=== PATIENT | male | born 1945 | race Caucasian/White ===

== ENCOUNTER 2016-08-19 16:45 | Inpatient (IN) | payer MEDICARE, MEDICAID ==
[~2016-08-19] VITALS: Ht 172.7 cm; Wt 116.8 kg
[2016-08-19] MEDS ORDERED: MAG HYDROX 30 ML UDC PO PRN (23:30)
[2016-08-19] MEDS ORDERED: BISACODYL 10 MG SUPP RECTAL PRN (23:30)
[2016-08-19] MEDS ORDERED: MORPHINE 2 MG/ML SYR IV PRN (23:30)
[2016-08-19] MEDS ORDERED: ALU/MAG/SIM 30 ML UDC PO PRN (23:30)
[2016-08-19] MEDS ORDERED: SALINE FLUSH 10 ML FLUSH PRN (23:30)
[2016-08-19 23:40] VITALS: BP_SYST 142; RESP 18; TEMP 98.4
[2016-08-19] MEDS ORDERED: SODIUM CHLORIDE 0.9% 1,000 ML IV SCH (23:40)
[2016-08-19] MEDS ORDERED: NEB-ALBUTEROL 2.5 MG/3 ML INH PRN (23:40)
[2016-08-19 23:41] VITALS: Ht 172.7 cm; Wt 116.8 kg
[2016-08-20] VITALS (7 sets, daily range): BP systolic 99–166; RESP 14–18; TEMP 97.8–99
[2016-08-20] MEDS: DUONEB INH SCH ×4 (05:15→22:41)
[2016-08-20] MEDS: SODIUM CHLORIDE 0.9% FLUSH BAG 500 ML IV SCH (06:00)
[2016-08-20] MEDS: PANTOPRAZOLE 20 MG TAB PO SCH (07:00)
[2016-08-20] MEDS: SALINE FLUSH 10 ML FLUSH SCH ×2 (08:00→20:00)
[2016-08-20] MEDS: METOPROLOL TART 25 MG TAB PO SCH ×2 (09:00→21:19)
[2016-08-20] MEDS: METFORMIN 500 MG TAB PO SCH ×2 (09:00→21:19)
[2016-08-20] MEDS ORDERED: SODIUM CHLORIDE 0.9% 1,000 ML IV SCH (12:00)
[2016-08-20] MEDS ORDERED: KCL CR 20 MEQ TAB PO ONE (12:00)
[2016-08-20] MEDS: CETIRIZINE 10 MG TAB PO SCH (14:31)
[2016-08-20] MEDS: FERROUS SULF 325 MG TAB PO SCH (14:31)
[2016-08-20] MEDS: Atorvastatin 20 MG TAB PO SCH (21:19)
[2016-08-20] MEDS: amLODIPine 10 MG TAB PO SCH (21:19)
[2016-08-20] MEDS: KCL CR 20 MEQ TAB PO SCH (21:19)
[2016-08-20] MEDS: ESCITALOPRAM 10 MG TAB PO SCH (21:19)
[2016-08-20] MEDS: GABAPENTIN 100 MG CAP PO SCH (21:20)
[2016-08-21] VITALS (7 sets, daily range): BP systolic 141–161; RESP 18–20; TEMP 98.4–99.1
[2016-08-21] MEDS: SODIUM CHLORIDE 0.9% FLUSH BAG 500 ML IV SCH (05:58)
[2016-08-21] MEDS: PANTOPRAZOLE 20 MG TAB PO SCH (06:14)
[2016-08-21] MEDS: DUONEB INH SCH ×4 (07:18→23:42)
[2016-08-21] MEDS: SALINE FLUSH 10 ML FLUSH SCH ×2 (07:34→20:35)
[2016-08-21] MEDS: CETIRIZINE 10 MG TAB PO SCH (08:43)
[2016-08-21] MEDS: METFORMIN 500 MG TAB PO SCH ×2 (08:44→20:34)
[2016-08-21] MEDS: KCL CR 20 MEQ TAB PO SCH ×3 (08:44→20:34)
[2016-08-21] MEDS: FERROUS SULF 325 MG TAB PO SCH (08:44)
[2016-08-21] MEDS: METOPROLOL TART 25 MG TAB PO SCH ×2 (08:44→20:34)
[2016-08-21] MEDS: ESCITALOPRAM 10 MG TAB PO SCH (20:34)
[2016-08-21] MEDS: Atorvastatin 20 MG TAB PO SCH (20:34)
[2016-08-21] MEDS: GABAPENTIN 100 MG CAP PO SCH (20:34)
[2016-08-21] MEDS: amLODIPine 10 MG TAB PO SCH (20:35)
[2016-08-22 03:20] VITALS: BP_SYST 147; RESP 20; TEMP 98
[2016-08-22] MEDS: SODIUM CHLORIDE 0.9% FLUSH BAG 500 ML IV SCH (05:58)
[2016-08-22] MEDS: PANTOPRAZOLE 20 MG TAB PO SCH (06:11)
[2016-08-22] MEDS: DUONEB INH SCH ×4 (06:48→23:31)
[2016-08-22 07:19] VITALS: BP_SYST 143; RESP 20; TEMP 98.3
[2016-08-22] MEDS: SALINE FLUSH 10 ML FLUSH SCH ×2 (09:52→20:44)
[2016-08-22] MEDS: FERROUS SULF 325 MG TAB PO SCH (09:52)
[2016-08-22] MEDS: CETIRIZINE 10 MG TAB PO SCH (09:52)
[2016-08-22] MEDS: KCL CR 20 MEQ TAB PO SCH (09:52)
[2016-08-22] MEDS: METOPROLOL TART 25 MG TAB PO SCH ×2 (09:52→20:45)
[2016-08-22] MEDS: METFORMIN 500 MG TAB PO SCH ×2 (09:52→20:44)
[2016-08-22 11:35] VITALS: BP_SYST 148; RESP 20; TEMP 98.1
[2016-08-22 16:07] VITALS: BP_SYST 143; RESP 20; TEMP 98.6
[2016-08-22 19:47] VITALS: BP_SYST 144; RESP 18; TEMP 97.6
[2016-08-22] MEDS: amLODIPine 10 MG TAB PO SCH (20:44)
[2016-08-22] MEDS: ESCITALOPRAM 10 MG TAB PO SCH (20:44)
[2016-08-22] MEDS: Atorvastatin 20 MG TAB PO SCH (20:44)
[2016-08-22] MEDS: GABAPENTIN 100 MG CAP PO SCH (20:45)
[2016-08-22 23:18] VITALS: BP_SYST 154; RESP 18; TEMP 98.3
[2016-08-23] VITALS (9 sets, daily range): BP systolic 136–159; RESP 18–20; TEMP 98.3–99.2
[2016-08-23] MEDS: SODIUM CHLORIDE 0.9% FLUSH BAG 500 ML IV SCH ×2 (04:45→22:32)
[2016-08-23] MEDS: PANTOPRAZOLE 20 MG TAB PO SCH (06:29)
[2016-08-23] MEDS: DUONEB INH SCH ×4 (07:23→23:07)
[2016-08-23] MEDS: SALINE FLUSH 10 ML FLUSH SCH ×2 (08:11→20:41)
[2016-08-23] MEDS: CETIRIZINE 10 MG TAB PO SCH (08:11)
[2016-08-23] MEDS: METFORMIN 500 MG TAB PO SCH ×2 (08:11→20:41)
[2016-08-23] MEDS: METOPROLOL TART 25 MG TAB PO SCH ×2 (08:12→20:41)
[2016-08-23] MEDS: FERROUS SULF 325 MG TAB PO SCH (08:12)
[2016-08-23] MEDS: Atorvastatin 20 MG TAB PO SCH (20:41)
[2016-08-23] MEDS: ESCITALOPRAM 10 MG TAB PO SCH (20:41)
[2016-08-23] MEDS: amLODIPine 10 MG TAB PO SCH (20:41)
[2016-08-23] MEDS: GABAPENTIN 100 MG CAP PO SCH (20:41)
[2016-08-23] MEDS ORDERED: MISSING DOSE XX ONE (21:30)
[2016-08-24] VITALS (9 sets, daily range): BP systolic 134–172; RESP 16–20; TEMP 98.3–99
[2016-08-24] MEDS: PANTOPRAZOLE 20 MG TAB PO SCH (06:31)
[2016-08-24] MEDS: DUONEB INH SCH ×4 (07:10→23:32)
[2016-08-24] MEDS: METOPROLOL TART 25 MG TAB PO SCH ×2 (09:17→20:52)
[2016-08-24] MEDS: CETIRIZINE 10 MG TAB PO SCH (09:17)
[2016-08-24] MEDS: SALINE FLUSH 10 ML FLUSH SCH ×2 (09:17→20:52)
[2016-08-24] MEDS: METFORMIN 500 MG TAB PO SCH ×2 (09:18→20:52)
[2016-08-24] MEDS: FERROUS SULF 325 MG TAB PO SCH (09:18)
[2016-08-24] MEDS: Atorvastatin 20 MG TAB PO SCH (20:52)
[2016-08-24] MEDS: GABAPENTIN 100 MG CAP PO SCH (20:52)
[2016-08-24] MEDS: amLODIPine 10 MG TAB PO SCH (20:52)
[2016-08-24] MEDS: ESCITALOPRAM 10 MG TAB PO SCH (20:52)
[2016-08-24] MEDS: BISACODYL EC 5 MG TAB PO PRN (22:01)
[2016-08-24] MEDS: SODIUM CHLORIDE 0.9% FLUSH BAG 500 ML IV SCH (22:04)
[2016-08-25] MEDS: PANTOPRAZOLE 20 MG TAB PO SCH (06:09)
[2016-08-25 07:21] VITALS: BP_SYST 153; RESP 20; TEMP 98.2
[2016-08-25] MEDS: DUONEB INH SCH ×4 (07:42→23:19)
[2016-08-25] MEDS: SALINE FLUSH 10 ML FLUSH SCH ×2 (07:45→20:00)
[2016-08-25] MEDS: CETIRIZINE 10 MG TAB PO SCH (08:23)
[2016-08-25] MEDS: METFORMIN 500 MG TAB PO SCH ×2 (08:23→20:24)
[2016-08-25] MEDS: FERROUS SULF 325 MG TAB PO SCH (08:23)
[2016-08-25] MEDS: METOPROLOL TART 25 MG TAB PO SCH ×2 (08:23→20:24)
[2016-08-25] MEDS ORDERED: ENOXAPARIN 40 MG/0.4 ML SYR SUBQ SCH (10:50)
[2016-08-25 11:55] VITALS: BP_SYST 151; RESP 18; TEMP 98.4
[2016-08-25 15:19] VITALS: BP_SYST 159; RESP 18; TEMP 97.9
[2016-08-25 19:16] VITALS: BP_SYST 141; RESP 16; TEMP 98.1
[2016-08-25] MEDS: amLODIPine 10 MG TAB PO SCH (20:24)
[2016-08-25] MEDS: ESCITALOPRAM 10 MG TAB PO SCH (20:25)
[2016-08-25] MEDS: Atorvastatin 20 MG TAB PO SCH (20:25)
[2016-08-25] MEDS: GABAPENTIN 100 MG CAP PO SCH (20:25)
[2016-08-25 23:07] VITALS: BP_SYST 136; RESP 16; TEMP 98.7
[2016-08-26 03:49] VITALS: BP_SYST 166; RESP 18; TEMP 97.8
[2016-08-26] MEDS: SODIUM CHLORIDE 0.9% FLUSH BAG 500 ML IV SCH (04:23)
[2016-08-26] MEDS: PANTOPRAZOLE 20 MG TAB PO SCH (05:57)
[2016-08-26] MEDS: SALINE FLUSH 10 ML FLUSH SCH ×2 (07:28→20:57)
[2016-08-26] MEDS: DUONEB INH SCH ×4 (07:33→23:16)
[2016-08-26 07:58] VITALS: BP_SYST 135; RESP 20; TEMP 98.6
[2016-08-26] MEDS: METFORMIN 500 MG TAB PO SCH ×2 (08:15→20:57)
[2016-08-26] MEDS: CETIRIZINE 10 MG TAB PO SCH (08:15)
[2016-08-26] MEDS: FERROUS SULF 325 MG TAB PO SCH (08:15)
[2016-08-26] MEDS: METOPROLOL TART 25 MG TAB PO SCH ×2 (08:15→20:57)
[2016-08-26 11:47] VITALS: BP_SYST 144; RESP 18; TEMP 98.1
[2016-08-26 15:34] VITALS: BP_SYST 141; RESP 18; TEMP 98.3
[2016-08-26 19:57] VITALS: BP_SYST 169; TEMP 98.7
[2016-08-26] MEDS: GABAPENTIN 100 MG CAP PO SCH (20:57)
[2016-08-26] MEDS: amLODIPine 10 MG TAB PO SCH (20:57)
[2016-08-26] MEDS: ESCITALOPRAM 10 MG TAB PO SCH (20:57)
[2016-08-26] MEDS: Atorvastatin 20 MG TAB PO SCH (20:57)
[2016-08-26 23:38] VITALS: BP_SYST 135; RESP 16; TEMP 98.4
[2016-08-27] VITALS (8 sets, daily range): BP systolic 115–151; RESP 16–20; TEMP 98.1–98.7
[2016-08-27] MEDS: SODIUM CHLORIDE 0.9% FLUSH BAG 500 ML IV SCH ×2 (05:26→21:58)
[2016-08-27] MEDS: PANTOPRAZOLE 20 MG TAB PO SCH (06:17)
[2016-08-27] MEDS: DUONEB INH SCH ×4 (07:43→23:02)
[2016-08-27] MEDS: SALINE FLUSH 10 ML FLUSH SCH ×2 (08:00→20:00)
[2016-08-27] MEDS: METFORMIN 500 MG TAB PO SCH ×2 (09:12→20:24)
[2016-08-27] MEDS: FERROUS SULF 325 MG TAB PO SCH (09:12)
[2016-08-27] MEDS: METOPROLOL TART 25 MG TAB PO SCH ×2 (09:12→20:24)
[2016-08-27] MEDS: CETIRIZINE 10 MG TAB PO SCH (09:12)
[2016-08-27] MEDS ORDERED: MISSING DOSE XX ONE (19:30)
[2016-08-27] MEDS: ESCITALOPRAM 10 MG TAB PO SCH (20:24)
[2016-08-27] MEDS: amLODIPine 10 MG TAB PO SCH (20:24)
[2016-08-27] MEDS: GABAPENTIN 100 MG CAP PO SCH (20:24)
[2016-08-27] MEDS: Atorvastatin 20 MG TAB PO SCH (20:24)
[2016-08-27] MEDS: BISACODYL EC 5 MG TAB PO PRN (21:30)
[2016-08-28] VITALS (10 sets, daily range): BP systolic 129–148; RESP 16–18; TEMP 98.4–99.1
[2016-08-28] MEDS ORDERED: MISSING DOSE XX ONE (01:45)
[2016-08-28] MEDS: PANTOPRAZOLE 20 MG TAB PO SCH (06:12)
[2016-08-28] MEDS: DUONEB INH SCH ×4 (06:28→23:17)
[2016-08-28] MEDS: CETIRIZINE 10 MG TAB PO SCH (08:50)
[2016-08-28] MEDS: FERROUS SULF 325 MG TAB PO SCH (08:50)
[2016-08-28] MEDS: SALINE FLUSH 10 ML FLUSH SCH ×2 (08:50→20:00)
[2016-08-28] MEDS: METOPROLOL TART 25 MG TAB PO SCH ×2 (08:50→20:11)
[2016-08-28] MEDS: METFORMIN 500 MG TAB PO SCH ×2 (08:50→20:11)
[2016-08-28] MEDS: Atorvastatin 20 MG TAB PO SCH (20:11)
[2016-08-28] MEDS: ESCITALOPRAM 10 MG TAB PO SCH (20:11)
[2016-08-28] MEDS: amLODIPine 10 MG TAB PO SCH (20:11)
[2016-08-28] MEDS: GABAPENTIN 100 MG CAP PO SCH (20:11)
[2016-08-28] MEDS: SODIUM CHLORIDE 0.9% FLUSH BAG 500 ML IV SCH (23:59)
[2016-08-29] VITALS (10 sets, daily range): BP systolic 130–149; RESP 16–20; TEMP 97.3–98.7
[2016-08-29] MEDS: PANTOPRAZOLE 20 MG TAB PO SCH (06:41)
[2016-08-29] MEDS: DUONEB INH SCH ×3 (07:11→20:05)
[2016-08-29] MEDS: SALINE FLUSH 10 ML FLUSH SCH ×2 (08:00→20:00)
[2016-08-29] MEDS: METFORMIN 500 MG TAB PO SCH ×2 (09:29→22:32)
[2016-08-29] MEDS: FERROUS SULF 325 MG TAB PO SCH (09:29)
[2016-08-29] MEDS: METOPROLOL TART 25 MG TAB PO SCH ×2 (09:29→22:32)
[2016-08-29] MEDS: CETIRIZINE 10 MG TAB PO SCH (09:29)
[2016-08-29] MEDS: Atorvastatin 20 MG TAB PO SCH (22:32)
[2016-08-29] MEDS: ESCITALOPRAM 10 MG TAB PO SCH (22:32)
[2016-08-29] MEDS: amLODIPine 10 MG TAB PO SCH (22:32)
[2016-08-29] MEDS: GABAPENTIN 100 MG CAP PO SCH (22:32)
== END 2016-08-29 22:57 | DRG 56 ==
LOC: ENRESERVDT → ENRESERVTM → ENRESERV → ER 16:45 → EMR 22:15 → ENPENDDIS 22:15 → PCU2 23:04 → 3NT 08-21 23:01
PROVIDERS: ADMIT Internal Medicine; ATTEND Internal Medicine
DX: I69.154 Hemiplegia and hemiparesis following nontraumatic intracerebral hemorrhage affecting left non-dominant side (principal); R53.2 Functional quadriplegia; N17.9 Acute kidney failure, unspecified; E11.9 Type 2 diabetes mellitus without complications; J44.9 Chronic obstructive pulmonary disease, unspecified; E86.0 Dehydration; E87.6 Hypokalemia; E66.9 Obesity, unspecified; Z68.39 Body mass index [BMI] 39.0-39.9, adult; I10 Essential (primary) hypertension; E78.5 Hyperlipidemia, unspecified; J45.909 Unspecified asthma, uncomplicated; Z87.891 Personal history of nicotine dependence; Z79.82 Long term (current) use of aspirin; Z79.01 Long term (current) use of anticoagulants
CPT/HCPCS: 70450; 71010; 80048; 82947; 83036; 83735; 85025; 93005; 94640; 94799; 99231; 99232; 99233